=== PATIENT | female | born 1965 | race African-American/Black ===

== ENCOUNTER 2020-09-06 17:09 | Emergency (ER) | payer OTHER ==
[~2020-09-06] VITALS: Ht 170.2 cm; Wt 68.0 kg
[2020-09-06] MEDS ORDERED: ONDANSETRON HCL 4MG/2ML INJ IV STA (17:26)
[2020-09-06] MEDS ORDERED: SODIUM CHLORIDE 0.9% 1,000 ML IV ONE (17:30)
[2020-09-06 18:14] LABS: BASOPHILS % 0.2 % (0.0-2.0); EOSINOPHILS % 0.2 % (0.0-5.0); HEMATOCRIT. 39.5 % (36.0-48.0); HEMOGLOBIN. 12.8 g/dL (12.0-16.0); LYMPHOCYTES % 10.6 % (20.0-50.0); MEAN CORPUSCULAR HEMOGLOBIN 21.6 pg (28.0-32.0); MEAN PLATELET VOLUME 8.3 fl (7.4-10.4); MONOCYTES % 2.6 % (2.0-8.0); NEUTROPHILS % 86.4 % (40.0-76.0); PLATELET 249 x1000/uL (130-400); RED CELL DISTRIBUTION WIDTH 15.2 % (11.6-14.6)
[2020-09-06 18:18] LABS: CHLORIDE 105 mEq/L (98-107)
[2020-09-06 18:19] LABS: CLARITY URINE CLEAR (CLEAR); COLOR URINE YELLOW (YELLOW); KETONES URINE NEGATIVE (NEGATIVE); LEUKOCYTE ESTERASE URINE NEGATIVE (NEGATIVE); NITRITE URINE NEGATIVE (NEGATIVE); OCCULT BLOOD URINE NEGATIVE (NEGATIVE); PH URINE 8.5 (4.5-8.0); PROTEIN URINE NEGATIVE (NEGATIVE); SPECIFIC GRAVITY URINE 1.014 (1.005-1.030)
[2020-09-06 18:34] LABS: PLATELET ESTIMATE NORMAL
[2020-09-06 19:34] VITALS: BP 147/87
== END 2020-09-06 19:36 | disposition home or self-care (01) ==
LOC: ER 17:09
DX: I16.0 Hypertensive urgency (principal); T67.5XXA Heat exhaustion, unspecified, initial encounter; X58.XXXA Exposure to other specified factors, initial encounter; Y93.89 Activity, other specified; Y92.89 Other specified places as the place of occurrence of the external cause
CPT/HCPCS: 36415; 80053; 81003; 85025; 93005; 99284; J7030